=== PATIENT | female | born 1980 | race Caucasian/White ===

== ENCOUNTER 2025-07-16 05:16 | Outpatient (CLI) | payer BC ==
[2025-07-16 08:51] LABS: #Basophils 0.03 10x3/uL (0.0-0.2); #Eosinophils 0.13 10x3/uL (0.0-0.5); #Monocytes 0.36 10x3/uL (0.0-1.1); #Neutrophils 2.86 10x3/uL (1.5-8.4); %Basophils 0.5 % (0.0-2.0); %Eosinophils 2.2 % (0.0-6.0); %Lymphocytes 41.8 % (18.0-47.0); %Monocytes 6.2 % (0.0-10.0); %Neutrophils 49.0 % (40.0-75.0); Hematocrit 36.3 % (34.9-44.5); Hemoglobin 11.9 g/dL (12.0-15.5); Mean Corpuscular Hemoglobin 29.9 pg (27.0-33.0); Mean Corpuscular Volume 91.2 fL (81.6-98.3); Platelet Count 292 10x3/uL (150-450); Red Blood Cell (RBC) Count 3.98 10x6/uL (3.90-5.03); White Blood Cell (WBC) Count 5.84 10x3/uL (3.5-10.5)
[2025-07-16 09:07] LABS: Anion Gap 13 mmol/L (10-20); BUN (Urea Nitrogen) 12 mg/dL (7.0-18.7); Calc. Creatinine Clearance 0 mL/min (70-130); Calcium 8.5 mg/dL (7.8-10.44); Carbon Dioxide 28 mmol/L (22-29); Chloride 103 mmol/L (98-107); Glucose 89 mg/dL (70-105); Potassium 3.6 mmol/L (3.5-5.1); Sodium 140 mmol/L (136-145)
[2025-07-16 09:16] LABS: BHCG - Serum Negative (NEGATIVE); Pregs Control Background? CLEAR/WHITE (CLR/WHITE); Pregs Control Bar Appear? YES (CONTROL BAR)
== END 2025-07-16 05:17 | disposition home or self-care (01) ==
LOC: CSHLAB 05:16
PROVIDERS: ATTEND Orthopaedic Surgery
DX: Z01.812 Encounter for preprocedural laboratory examination (principal); S42.022A Displaced fracture of shaft of left clavicle, initial encounter for closed fracture
CPT/HCPCS: 36415; 80048; 82306; 84703; 85025

== ENCOUNTER 2025-07-17 05:39 | Day surgery (SDC) | payer BC, OTHER ==
[2025-07-15 11:38] VITALS: BMI 21.5
[2025-07-17] MEDS ORDERED: Bupivacaine HCl 0.5%/Epinephrine 1:200,000/PF 30 ml Vial ONE (06:11)
[2025-07-17] MEDS ORDERED: PROPOFOL 20 ML ONE (06:49)
[2025-07-17] MEDS ORDERED: Ketorolac Tromethamine 30 MG (1 mL) VIAL ONE ×2 (06:49→06:52)
[2025-07-17] MEDS ORDERED: Glycopyrrolate 0.2 MG/ML 5 ML SYRINGE ONE (06:49)
[2025-07-17] MEDS ORDERED: Tranexamic Acid 1,000 MG/10 ML VIAL ONE (06:52)
[2025-07-17] MEDS ORDERED: Ropivacaine 0.2% HCl/PF 20 ML ONE (06:52)
[2025-07-17] MEDS ORDERED: cloNIDine PF 1,000 MCG/10 ML VIAL ONE (06:52)
[2025-07-17] MEDS ORDERED: CEFAZOLIN 2 GM VIAL ONE (06:58)
[2025-07-17] MEDS ORDERED: KETAMINE 100 MG/ML (5ML VIAL) ONE (07:04)
[2025-07-17] MEDS ORDERED: SUGAMMADEX SODIUM 200 MG/2 ML VIAL ONE (07:44)
[2025-07-17] MEDS ORDERED: HYDROcodone/Acetaminophen 5/325 mg Tablet ONE (08:59)
== END 2025-07-17 10:15 | disposition home or self-care (01) ==
LOC: CSHSDC 05:39
PROVIDERS: ATTEND Orthopaedic Surgery
PROC: 0PSB04Z Reposition Left Clavicle with Internal Fixation Device, Open Approach (ICD-10-PCS; principal; 2025-07-17)
DX: S42.022A Displaced fracture of shaft of left clavicle, initial encounter for closed fracture (principal); Z85.820 Personal history of malignant melanoma of skin; Z88.2 Allergy status to sulfonamides; V80.010A Animal-rider injured by fall from or being thrown from horse in noncollision accident, initial encounter
CPT/HCPCS: A6197; C1713; J0735; J1100; J1885; J2250; J2550; J2704; J2795; J3373